=== PATIENT | female | born 1980 | race Caucasian/White ===

== ENCOUNTER 2017-06-28 21:27 | Emergency (ER) | payer SELFPAY ==
[~2017-06-28] VITALS: Ht 162.6 cm; Wt 63.5 kg
[2017-06-28 21:30] VITALS: BP_SYST 129
[2017-06-28 23:42] VITALS: BP_SYST 125
== END 2017-06-28 23:42 | disposition home or self-care (01) ==
LOC: SED 21:27
DX: S13.4XXA Sprain of ligaments of cervical spine, initial encounter (principal); F07.81 Postconcussional syndrome; V89.2XXA Person injured in unspecified motor-vehicle accident, traffic, initial encounter; Y93.89 Activity, other specified; Y92.488 Other paved roadways as the place of occurrence of the external cause; Y99.8 Other external cause status
CPT/HCPCS: 70450-TC; 72125-TC; 81025; 99284